=== PATIENT | female | born 1950 | race Caucasian/White ===

== ENCOUNTER 2020-09-23 07:15 | Inpatient (IN) | payer MEDICARE, BC ==
[~2020-09-23 07:15] MED LIST: Bupivacaine 0.5% 50 ML MDV ONE; Lidocaine 1% with EPINEPHrine 1:100,000 50 ML MDV ONE
[2020-09-23] MEDS ORDERED: Acetaminophen 500 MG Tab PO ONE (08:00)
[2020-09-23] MEDS ORDERED: Naloxone 0.4 MG/ML SDV IVPUSH PRN (08:00)
[2020-09-23] MEDS ORDERED: Rocuronium 50 MG/5 ML Vial ONE ×2 (08:19→11:33)
[2020-09-23] MEDS ORDERED: Glycopyrrolate 0.2 MG/ML 5 ML MDV ONE (08:19)
[2020-09-23] MEDS ORDERED: fentaNYL 250 MCG/5 ML SDV ONE (08:19)
[2020-09-23] MEDS ORDERED: fentaNYL 100 MCG/2 ML SDV ONE ×2 (08:19→11:51)
[2020-09-23] MEDS ORDERED: Succinylcholine 200 MG/10 ML MDV ONE (08:19)
[2020-09-23] MEDS ORDERED: Dexamethasone 4 MG/ML SDV ONE (08:19)
[2020-09-23] MEDS ORDERED: Propofol 200 MG/20 ML SDV ONE ×3 (08:19→11:59)
[2020-09-23] MEDS ORDERED: Ondansetron 4 MG/2 ML SDV ONE (08:19)
[2020-09-23] MEDS ORDERED: Neostigmine Methylsulfate 1 MG/ML 5 ML Syringe ONE (08:19)
[2020-09-23] MEDS ORDERED: Sodium Chloride 0.9% 10 ML ONE (08:21)
[2020-09-23] MEDS ORDERED: Neomycin/Polymyxin B 1 ML, Sodium Chloride 0.9% 750 ML IRR ONE ×2 (08:30)
[2020-09-23] MEDS ORDERED: Dextrose 5%-Lactated Ringers 1,000 ML IV SCH (08:30)
[2020-09-23] MEDS ORDERED: Scopolamine 1.5 MG Transdermal Patch TRDERM SCH (08:45)
[2020-09-23] MEDS ORDERED: cefOXitin 2 GM in Sodium Chloride 0.9% 50 ML IV ONE (09:30)
[2020-09-23] MEDS ORDERED: Ketamine 500 MG/5 ML MDV IV SCH (09:30)
[2020-09-23] MEDS ORDERED: Ketamine 50 MG in Sodium Chloride 0.9% 49.5 ML IV SCH (09:30)
[2020-09-23] MEDS ORDERED: diphenhydrAMINE 50 MG/ML SDV IVPUSH PRN (09:50)
[2020-09-23] MEDS ORDERED: Labetalol 20 MG/4 ML Syringe ONE (10:53)
[2020-09-23] MEDS ORDERED: Meropenem 500 MG SDV ONE (11:02)
[2020-09-23] MEDS: Fluorescein 5 ML Vial IV PRN ×2 (11:28→11:29)
[2020-09-23] MEDS ORDERED: Furosemide 20 MG/2 ML VIAL ONE (11:36)
[2020-09-23] MEDS ORDERED: Lactated Ringers 1,000 ML ONE (11:39)
[2020-09-23] MEDS ORDERED: Belladonna Alkaloids/Opium 16.2-30 MG Supp RECTAL PRN (13:40)
[2020-09-23] MEDS: SCOPOLAMINE PATCH CHECK TOP SCH (13:52)
[2020-09-23] MEDS ORDERED: hydrOXYzine HCL 100 MG/2 ML SDV IM PRN (14:00)
[2020-09-23] MEDS ORDERED: Ondansetron 4 MG/2 ML SDV IVPUSH PRN (14:00)
[2020-09-23] MEDS ORDERED: Naloxone 0.4 MG/ML SDV IV PRN (14:00)
[2020-09-23] MEDS: fentaNYL 2,500 MCG in Sodium Chloride 0.9% 200 ML EPIDUR SCH (14:14)
[2020-09-23] MEDS: Pantoprazole 40 MG Vial IVPUSH SCH (15:52)
[2020-09-23] MEDS: cefOXitin 2 GM in Sodium Chloride 0.9% 50 ML IV SCH ×2 (15:56→21:21)
[2020-09-23] MEDS: Dextrose 5%-Lactated Ringers 1,000 ML IV SCH (17:55)
[2020-09-24] MEDS: cefOXitin 2 GM in Sodium Chloride 0.9% 50 ML IV SCH ×4 (03:14→21:14)
[2020-09-24] MEDS: Dextrose 5%-Lactated Ringers 1,000 ML IV SCH ×4 (06:14→21:14)
--- NOTE | 2020-09-24 07:39 | PN ---
DATE OF SERVICE: 09/24/2020 SUBJECTIVE: Lori Schmid is postoperative day 1. She does have an epidural. It was turned down to 10. Intake 600, urine output 1230 via Marsh catheter. UBALDO drain put out 165 of a light pink drainage. Vital signs have been stable. She did have some itching, was given Benadryl and Vistaril and became very sleepy. At that time, fentanyl dose was decreased from 12 to 10. Currently somewhat confused, but answers questions appropriately. REVIEW OF SYSTEMS: Remainder of review of systems negative for any pertinent positives and negatives. OBJECTIVE: GENERAL: Lori is a pleasant 69-year-old female. VITAL SIGNS: Height 5 feet 1 inch, weight is 140 pounds. TPR at 0504; 98.5, 70, 14. Blood pressure 122/62. HEENT: Negative. NECK: Supple. HEART: Regular rate and rhythm. LUNGS: Clear. ABDOMEN: Dressings dry and intact. Abdominal binder is on. UBALDO drain as above. Marsh catheter in place, draining dark urine with some blood noted. EXTREMITIES: Without peripheral edema. ASSESSMENT: 1. Exploratory laparotomy with;. a. Right ovarian cystectomy. b. Total abdominal hysterectomy with left salpingo-oophorectomy. c. Small bowel resection. d. Closure urinary bladder. POSTOPERATIVE DIAGNOSIS: Hemorrhagic right ovarian cyst with inflammatory adherence to small bowel and urinary bladder. Date of procedure 09/23/2020. Surgeon: Ramakrishna Doshi MD. PLAN: 1. Vistaril 50 mg IV q.4 hours. 2. Schedule and have consent signed for delayed primary closure with IV and local sedation, TAP block 09/25/2020 at 0715. Surgeon, Ramakrishna Doshi, n.p.o. after midnight. 3. Decrease IV to 100 mL per hour at 1600 (4 p.m.). 4. Continue use of incentive spirometer. 5. We will evaluate p.r.n. or in a.m. Naya Allen PA-C /[id number]
[2020-09-24] MEDS: SCOPOLAMINE PATCH CHECK TOP SCH (08:36)
[2020-09-24] MEDS: hydrOXYzine HCL 100 MG/2 ML SDV IM PRN (09:46)
[2020-09-24] MEDS ORDERED: Lactated Ringers 500 ML IV SCH (11:15)
[2020-09-24] MEDS: fentaNYL 2,500 MCG in Sodium Chloride 0.9% 200 ML EPIDUR SCH (11:35)
[2020-09-24] MEDS: Pantoprazole 40 MG Vial IVPUSH SCH (15:57)
[2020-09-25] MEDS: cefOXitin 2 GM in Sodium Chloride 0.9% 50 ML IV SCH ×2 (03:14→09:52)
[2020-09-25] MEDS ORDERED: Meropenem 500 MG SDV ONE (06:37)
[2020-09-25] MEDS ORDERED: Lidocaine 1% with EPINEPHrine 1:100,000 50 ML MDV ONE (06:37)
[2020-09-25] MEDS ORDERED: Bupivacaine 0.5% 50 ML MDV ONE (06:37)
[2020-09-25] MEDS ORDERED: Propofol 200 MG/20 ML SDV ONE (07:12)
[2020-09-25] MEDS ORDERED: fentaNYL 100 MCG/2 ML SDV ONE (07:13)
[2020-09-25] MEDS: SCOPOLAMINE PATCH CHECK TOP SCH (09:25)
[2020-09-25] MEDS: Dextrose 5%-Lactated Ringers 1,000 ML IV SCH ×2 (09:52→20:40)
--- NOTE | 2020-09-25 09:54 | PN ---
DATE OF SERVICE: 09/25/2020 SUBJECTIVE: Lori reports her pain is controlled. Her epidural was decreased to 8. She is n.p.o., will be having delayed primary closure today, has had no nausea or vomiting. Vital signs have been stable. REVIEW OF SYSTEMS: Remainder of review of systems negative for any pertinent positives and negatives. OBJECTIVE: GENERAL: Lori Schmid is a pleasant 69-year-old female. She is alert and orientated this morning. NPO for delayed primary closure. VITAL SIGNS: TPR is 97.2, 98, 16, blood pressure 132/57. HEENT: Negative. NECK: Supple. HEART: Regular rate and rhythm. LUNGS: Clear. ABDOMEN: Dressing is dry and intact. It is shadowed with blood. UBALDO drain is intact. GENITOURINARY: Marsh catheter is in place and it is draining a clear yellow drainage. No blood is noted. EXTREMITIES: Without peripheral edema. ASSESSMENT: 1. Delayed primary closure, 09/25/2020. Surgeon, Ramakrishna Doshi. 2. Exploratory laparotomy with: a. Right ovarian cystectomy. b. Total abdominal hysterectomy with left salpingo-oophorectomy. c. Small bowel resection. d. Closure of urinary bladder. POSTOPERATIVE DIAGNOSIS: Hemorrhagic right ovarian cyst with inflammatory adherence to small bowel and urinary bladder. Date of procedure: 09/23/2020. Surgeon: Ramakrishna Doshi MD. PLAN: 1. Bowel stimulation was ordered. Ibuprofen scheduled and Tylenol scheduled. Sips of clear liquids. 2. We will evaluate p.r.n. or in a.m. Plan discontinuing epidural in a.m. Naya Allen PA-C /[id number]
[2020-09-25] MEDS: Acetaminophen 325 MG Tab PO SCH ×4 (11:32→21:32)
[2020-09-25] MEDS: Docusate Sodium 100 MG Cap PO SCH ×2 (11:32→20:41)
[2020-09-25] MEDS: Bisacodyl 5 MG Tab PO SCH ×2 (11:33→20:41)
[2020-09-25] MEDS: Ibuprofen 400 MG Tab PO SCH ×2 (14:01→20:38)
[2020-09-25] MEDS: Pantoprazole 40 MG Vial IVPUSH SCH (16:21)
[2020-09-25] MEDS: fentaNYL 2,500 MCG in Sodium Chloride 0.9% 200 ML EPIDUR SCH (19:02)
[2020-09-26] MEDS: Ibuprofen 400 MG Tab PO SCH ×4 (02:54→20:10)
[2020-09-26] MEDS: Dextrose 5%-Lactated Ringers 1,000 ML IV SCH ×2 (02:56→18:15)
[2020-09-26] MEDS: Acetaminophen 325 MG Tab PO SCH ×4 (03:01→23:16)
[2020-09-26] MEDS: Bisacodyl 5 MG Tab PO SCH ×2 (08:49→20:11)
[2020-09-26] MEDS: Docusate Sodium 100 MG Cap PO SCH ×2 (08:51→20:12)
[2020-09-26] MEDS: SCOPOLAMINE PATCH CHECK TOP SCH (09:54)
--- NOTE | 2020-09-26 09:58 | PN ---
DATE OF SERVICE: 09/26/2020 SUBJECTIVE: Lori is a pleasant 69-year-old female. She had a delayed primary closure yesterday. She is less confused today. Oral intake 960. Marsh catheter put out 3850. UBALDO drain put out 65 mL of light red drainage. OBJECTIVE: HEENT: Negative. NECK: Supple. HEART: Regular rate and rhythm. LUNGS: Clear. ABDOMEN: Aquacel dressing does have some shadowing around the mid area. Abdominal binder has been on. UBALDO drain intact as above. EXTREMITIES: Without peripheral edema. ASSESSMENT: 1. Delayed primary closure, 09/25/2020. Surgeon: Ramakrishna Doshi. 2. Exploratory laparotomy with;. a. Right ovarian cystectomy. b. Total abdominal hysterectomy with left salpingo-oophorectomy. c. Small bowel resection. d. Closure of urinary bladder. POSTOPERATIVE DIAGNOSIS: Hemorrhagic right ovarian cyst with inflammatory adherence to small bowel and urinary bladder. Date of procedure 09/23/2020. Surgeon: Ramakrishna Doshi MD. PLAN: 1. Oxycodone 5 mg every 4 hours p.r.n. pain. When to start: When the epidural is discontinued, orally. 2. Decrease IV to 75 mL per hour. 3. Clear liquid diet. 4. Check CBC, CMP, mag, phos in a.m. 5. Continue use of incentive spirometer. 6. We will evaluate p.r.n. Naya Allen PA-C /[id number]
[2020-09-26] MEDS: oxyCODONE 5 MG Tab PO PRN ×3 (10:31→20:11)
[2020-09-26] MEDS: Pantoprazole 40 MG Tab.CR PO SCH (10:32)
[2020-09-26] MEDS: hydrOXYzine HCL 100 MG/2 ML SDV IM PRN (13:04)
[2020-09-27] MEDS: oxyCODONE 5 MG Tab PO PRN ×5 (00:01→19:33)
[2020-09-27] MEDS: Ibuprofen 400 MG Tab PO SCH ×4 (00:02→19:34)
[2020-09-27] MEDS: Acetaminophen 325 MG Tab PO SCH ×4 (04:17→21:41)
[2020-09-27] MEDS: Dextrose 5%-Lactated Ringers 1,000 ML IV SCH (07:30)
[2020-09-27] MEDS: Pantoprazole 40 MG Tab.CR PO SCH (07:56)
[2020-09-27] MEDS: Docusate Sodium 100 MG Cap PO SCH ×2 (09:41→21:41)
[2020-09-27] MEDS: Bisacodyl 5 MG Tab PO SCH ×3 (09:41→21:43)
--- NOTE | 2020-09-27 11:49 | PN ---
DATE OF SERVICE: 09/27/2020 SUBJECTIVE: Lori reports her pain is controlled with oxycodone. She has been on a clear liquid diet. Oral intake is 1636. Output via Marsh catheter is 1425. Urine is clear. UBALDO drain put out 402 mL of a light pink drainage, and she has had 3 bowel movements. Remainder of review of systems negative for any pertinent positives and negatives. OBJECTIVE: GENERAL: Lori Schmid is a pleasant 69-year-old female. She is alert and orientated. VITAL SIGNS: TPR are 96.8, 75, and 18. Blood pressure is 115/51. HEENT: Negative. NECK: Supple. HEART: Regular rate and rhythm. LUNGS: Clear. ABDOMEN: Aquacel dressing intact. Abdominal binder is on. EXTREMITIES: Without peripheral edema. ASSESSMENT: 1. Delayed primary closure on 09/25/2020. Surgeon: Ramakrishna Doshi MD. 2. Exploratory laparotomy with: a. Right ovarian cystectomy. b. Total abdominal hysterectomy with left salpingo-oophorectomy. c. Small bowel resection. d. Closure of urinary bladder. POSTOPERATIVE DIAGNOSES: Hemorrhagic right ovarian cyst with inflammatory adherence to small bowel and urinary bladder. Date of procedure 09/23/2020. Surgeon: Ramakrishna Doshi MD. PLAN: 1. Regular diet. 2. Saline lock IV. 3. Continue use of incentive spirometer. 4. Plan discharge in a.m. 5. Patient will go home with Marsh catheter. 6. We will evaluate p.r.n. or in a.m. Naya Allen PA-C /[id number]
[2020-09-28] MEDS: Ibuprofen 400 MG Tab PO SCH ×4 (01:51→19:02)
[2020-09-28] MEDS: Acetaminophen 325 MG Tab PO SCH ×4 (05:09→21:21)
[2020-09-28] MEDS: oxyCODONE 5 MG Tab PO PRN ×5 (05:10→22:57)
[2020-09-28] MEDS: Pantoprazole 40 MG Tab.CR PO SCH (08:12)
[2020-09-28] MEDS: Lactobacillus Rhamnosus GG (Probiotic) Cap PO SCH (10:30)
[2020-09-28] MEDS: Docusate Sodium 100 MG Cap PO SCH ×2 (10:32→21:21)
[2020-09-29] MEDS: Ibuprofen 400 MG Tab PO SCH ×2 (01:11→08:11)
[2020-09-29] MEDS: oxyCODONE 5 MG Tab PO PRN ×3 (02:42→11:49)
[2020-09-29] MEDS: Acetaminophen 325 MG Tab PO SCH ×2 (04:06→11:49)
[2020-09-29 07:00] VITALS: BP 141/73; PULSE 95
[2020-09-29] MEDS: Docusate Sodium 100 MG Cap PO SCH (08:12)
[2020-09-29] MEDS: Pantoprazole 40 MG Tab.CR PO SCH (08:12)
[2020-09-29] MEDS: Lactobacillus Rhamnosus GG (Probiotic) Cap PO SCH (08:12)
--- NOTE | 2020-09-29 13:01 | PN ---
DATE OF SERVICE: 09/28/2020 The patient has been afebrile with stable vital signs. She has a little bit of problems with managing her personal care with the Marsh catheter and such. We will work on that 1 more day and set up some home care to work with her tomorrow. Otherwise, we will discontinue the Dulcolax oral tablets. Her bowels are moving. UBALDO drain will be coming out as well and give her some probiotic capsules and she will likely be ready for discharge home tomorrow. Ramakrishna Doshi MD /[id number]
--- NOTE | 2020-09-30 09:51 | OR ---
DATE OF PROCEDURE: 09/23/2020 SURGEON: Ramakrishna Doshi MD PREOPERATIVE DIAGNOSIS: Large right ovarian cyst. POSTOPERATIVE DIAGNOSES: Large right ovarian cyst associated with torsion, hemorrhage, and necrosis with inflammatory adherence to adjacent small bowel and urinary bladder. OPERATIVE PROCEDURE: Exploratory laparotomy with: 1. Right ovarian cystectomy (78426). 2. Total abdominal hysterectomy with left salpingo-oophorectomy (77721). 3. Small bowel resection (71685). 4. Closure of urinary bladder at site of focal cystotomy (41377). ANESTHESIA: General plus epidural. MIDDLEWARE CONSULTANT: Naya Allen PA-C INDICATIONS FOR PROCEDURE: This is a 69-year-old female presenting with lower abdominal fullness and discomfort. CT scan showed a large ovarian cyst with features somewhat concerning for malignancy. Plan is to proceed with exploratory laparotomy with ovarian cystectomy with frozen section and other procedures as indicated. Potential risks including bleeding, infection, injury to underlying viscera, and problems with local or distant tumor recurrence as well as possibility of cardiopulmonary, septic, or hemorrhagic complications leading to were discussed, and the patient wishes to proceed. DETAILS OF PROCEDURE: The patient was taken to the operating room and placed in a supine position. After general endotracheal anesthesia was induced, a Marsh catheter was inserted, and vaginal abdominal prep performed. Previous midline incision was reused and extended somewhat above the umbilicus, carried down through the full-thickness of abdominal wall. Upon entering the peritoneal cavity, there were some minor adhesions between the omentum and the anterior abdominal and pelvic wall. These were taken down. There was essentially no peritoneal fluid present. Initially, saline was placed into the pelvis, and washings were obtained for cytology. The finding was that of a large right ovarian cyst, which was involved in torsion. This was associated with quite a bit of hemorrhage in and around it and focal necrosis of the cyst. There was dense inflammatory reaction in the area around the cyst including a segment of small bowel, which was densely adherent and also in the area of the anterior cul-de-sac between the uterus and the urinary bladder. As the cyst was then bluntly peeled away from those areas, the small bowel was resected, being divided proximally and distally with DANUTA stapler as was the underlying mesentery, and when we peeled the cyst right from the urinary bladder, there was a small cystotomy in the area more or less at the junction of the urinary bladder and the cervix. The ovarian cyst was then excised away from its attachments to the remaining portion of the right adnexa with the DANUTA stapler and delivered from the field intact. Frozen section on this was consistent with a serous cystadenoma with no evidence of malignancy. The remaining right adnexa, uterine tube, and ovary were then excised on the right side as well. The ovary was quite nodular and inflamed in appearance. We did obtain a frozen section of that as well, which likewise showed no evidence of malignancy. At this point, there was some granular tissue in the anterior aspect of the uterus, and we at that point decided to proceed with a total abdominal hysterectomy along with removal of the remaining left ovary. On each side, the infundibulopelvic and round ligaments were divided with DANUTA margo, and the remainder of the bladder attachments below the area of cystotomy were taken down over the upper vagina. The broad and cardinal ligaments were then taken with DANUTA margo as well, and the uterosacral ligament was then clamped and divided and initially suture ligated with #1 Vicryl stitch. The vaginal cuff was then divided away from the area just below the cervix, and the uterosacral ligament sutures were then used to close the vaginal cuff angles in the midline. Frozen section on the granular area on the anterior aspect of the uterus was also obtained and that likewise showed no evidence of malignancy. The urinary bladder was extremely thinned out in the area of the cystotomy, and after identification of the uterus somewhat inferior to the area of the cystotomy, the bladder was closed with 2 layers of 2-0 Vicryl stitch, the first layer being a full-thickness layer and second more of a serosal muscular type layer. The patient was given some IV dye, which stained the urine yellow. No leakage from the urinary bladder was seen, and there was prompt presentation of the yellow stained dye in the urine that had been drained from the bladder to confirm what appeared to be an adequate closure of the urinary bladder. The GI tract continuity was then accomplished with a [id number] enteroenterostomy between the small bowel. This was accomplished with internal firing of the Endo-DANUTA 60 mm stapler, followed by the 30 mm internal firing, and the common opening was then closed transversely with a DANUTA stapler as well. Angles were anastomosed, and mesenteric defect was approximated with some 3-0 Vicryl stitch. At this point with no further problems noted, the abdomen was irrigated with antibiotic- containing saline solution. Kevan-Bear drain was taken through the stab wound in the right mid abdomen, placed down into the pelvis as well as adjacent to the closure of the urinary bladder. The posterior peritoneum from linea semilunaris downward was then closed with running #2 Vicryl stitch as was the anterior fascia. The skin and subcutaneous tissue were felt to be at significant risk for wound infection. Primary closure was undertaken. These were therefore packed open with Iodoform gauze for a delayed primary closure in 48 hours. The patient had an epidural catheter placed prior to the general anesthetic, and this appeared to be working for pain control in the early postoperative period. The patient was taken to the recovery room in satisfactory condition. Physician public aid eligibility assistant, Naya Allen PA-C, played an essential role in assisting in this case, helping to position the patient, retract structures as needed, and as well as suturing and cutting sutures when indicated. Her presence improved patient safety and decreased operative time. Ramakrishna Doshi MD /[id number]
--- NOTE | 2020-09-30 11:34 | DISCH ---
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 SECONDARY DIAGNOSES: 1. History of borderline glaucoma. 2. History of internal hemorrhoids and anal fissure. 3. Lesion of radial nerve. OPERATIVE PROCEDURES: 1. On 09/23, exploratory laparotomy with: a. Right ovarian cystectomy. b. Total abdominal hysterectomy with left salpingo-oophorectomy. c. Small bowel resection. d. Closure of cystotomy. 2. On 09/25, delayed primary closure of abdominal incision. SUMMARY: This is a 69-year-old female presenting with fullness in the lower abdomen and discomfort. Preoperative workup showed a large ovarian cyst which had worrisome features with regard to possible malignancy. At the time of exploration, she was noted have a torsion of a large right ovarian cyst. This resulted in an intense inflammation in the surrounding areas with hemorrhage and necrosis of a portion of the cyst, and dense adherence to the segment of small bowel as well as the portion of the urinary bladder. Segment of small bowel was resected and a small cystotomy was sustained during dissection of the urinary bladder and this was closed. Final pathology came back a serous cystadenoma, i.e. benign. Postoperatively, the patient appeared to be doing fairly well at this point. She will be discharged home with Marsh catheter to be remaining in for another 3 days. She will take that out earlier this coming Wednesday and we will see her in the clinic after to make sure that urinary bladder has been functioning satisfactorily. Otherwise, she is on a regular diet. She will be instructed to avoid lifting more than 10 pounds for 6 weeks postoperatively. MEDICATIONS ON DISCHARGE: Include oxycodone 5 mg p.o. q.4 hours p.r.n. pain #40, ibuprofen 400 mg q.6 hours p.r.n. pain, Colace 100 mg p.o. b.i.d. x1 month and then p.r.n., and then Tylenol 650 p.o. q.6 hours p.r.n. She will be instructed to hold the [place] which she was on preoperatively while she is on the oxycodone and Tylenol. /[id number]
--- NOTE | 2020-10-06 11:59 | OR ---
DATE OF PROCEDURE: 09/25/2020 SURGEON: Ramakrishna Doshi MD PREOPERATIVE DIAGNOSIS: Open abdominal incision. POSTOPERATIVE DIAGNOSIS: Open abdominal incision. PROCEDURE: Delayed primary closure of abdominal incision. ANESTHESIA: Local with IV sedation. INDICATIONS FOR PROCEDURE: The patient is status post open laparotomy with small bowel and open urinary bladder being managed given this patient was felt to be high risk for wound infection if primary closure of the skin and subcutaneous tissue was undertaken, and the wound was packed open for a planned delayed primary closure at this time. Potential risks including bleeding and infection were reviewed, and the patient wishes to proceed. DETAILS OF PROCEDURE: The patient was taken to the operating room, placed in a supine position with the head somewhat up in order to minimize aspiration risk. IV sedation was administered, after which the previous operative dressing was taken down and the wound inspected and found to be clean. Wound was then prepped and draped using ultrasound guidance. Bilateral transversus abdominis plane blocks were then placed. The midline incision was extended up towards the xiphoid and down to the pubis, was then irrigated with meropenem-containing saline solution, anesthetized with 1% lidocaine mixed with Marcaine and closed with 2 layers of 3-0 and 4-0 Vicryl stitch deep and margo for the skin. Dressing was applied. The patient was taken to the recovery room in satisfactory condition. Ramakrishna Doshi MD /[id number]
== END 2020-09-29 12:08 | disposition home or self-care (01) | DRG 742 ==
LOC: EDSTATUS 07:15 → JP.SDS 08:02 → JP.SDSSCHI 08:02 → JP.MS 12:30
PROVIDERS: ADMIT Surgery; ATTEND Surgery
PROC: 0DB80ZZ Excision of Small Intestine, Open Approach (ICD-10-PCS; principal; 2020-09-23)
PROC: 0UT10ZZ Resection of Left Ovary, Open Approach (ICD-10-PCS; principal; 2020-09-23)
PROC: 0UT90ZZ Resection of Uterus, Open Approach (ICD-10-PCS; principal; 2020-09-23)
PROC: 0UB00ZZ Excision of Right Ovary, Open Approach (ICD-10-PCS; principal; 2020-09-23)
PROC: 0UT60ZZ Resection of Left Fallopian Tube, Open Approach (ICD-10-PCS; principal; 2020-09-23)
PROC: 0HQ7XZZ Repair Abdomen Skin, External Approach (ICD-10-PCS; 2020-09-25)
DX: D27.0 Benign neoplasm of right ovary (principal); N83.511 Torsion of right ovary and ovarian pedicle; H40.9 Unspecified glaucoma; N70.92 Oophoritis, unspecified; N18.31 Chronic kidney disease, stage 3a; K60.2 Anal fissure, unspecified; H52.209 Unspecified astigmatism, unspecified eye; H40.009 Preglaucoma, unspecified, unspecified eye; M77.8 Other enthesopathies, not elsewhere classified; K64.8 Other hemorrhoids; M85.80 Other specified disorders of bone density and structure, unspecified site; H52.10 Myopia, unspecified eye; H52.4 Presbyopia
CPT/HCPCS: 36415; 80053; 82378; 83735; 84100; 85027; 86301; 86304; 86850; 86900; 86901; 86920; 86922; 88112; 88305; 88307; 88342; 94762; A9270-GY; C9113; J0171; J0330; J0694; J1100; J1200; J1940; J2185; J2405; J2704; J2710; J2795; J3010; J3410; J3490; J7050; J7120; J7121